=== PATIENT | male | born 1975 | race Caucasian/White ===

== ENCOUNTER 2019-02-25 08:46 | Inpatient (IN) ==
[2019-02-25] MEDS ORDERED: CeFAZolin Syr 2,000MG/20 ML 2,000 MG/20 ML SYRINGE IVPB ONE (09:39)
[2019-02-25] MEDS ORDERED: Ringers Solution, Lactated 1,000 ML IVC SCH (09:45)
--- NOTE | 2019-02-25 10:00 | History & Physical Report ---
Date of Encounter: 02/25/19 Time of Encounter: 10:00 24 Hour HP Update - Instructions Instructions: If the History and Physical is less than 30 days old and was completed prior to A.M. admission and or procedure and has NOT been updated on calendar day of procedure please complete this update prior to performing procedure. - Update Patient reports changes in Medical Condition: No Changes in examination, assessment, or condition: No Changes in Medication: No Preop tests/diagnostics Reviewed: Yes Surgery Remains Indicated: Yes Consent for Planned Operative Procedure(s) Verified: Yes - Pre-Operative Checklist Preoperative Checklist Indicated: No Prophylactic Antibiotic Ordered: Yes Is VTE Prophylaxis Indicated?: Yes
--- NOTE | 2019-02-25 10:01 | Discharge Summary ---
Outpatient Proc Discharge Plan - Plan Additional Instructions: Post Operative Shoulder Arthroscopy AFTER SURGERY General Expectations Swelling and discomfort in the shoulder for up to a week after surgery is typical A post-operative appointment will be set up with your provider within the 1st week of your surgery. Stitches will be removed within one (1) week of your surgery. You may need help with your daily activities, so it is a good idea to have family and friends prepared to help you. Eat a regular diet. Although some people feel much better right away, many people notice they are not back to normal for 4 weeks or more. The shoulder is stiff and sore for several weeks. Rest after your surgery. You may feel dizzy, lightheaded or sleepy for 12 to 24 hours after your operation. This is perfectly normal. Move slowly, and be especially careful on stairs. On the following day you can do those activities that you feel able to do. Wound Care Expect minimal bloody drainage on the surgical bandages. Keep bandages clean and dry. You may remove outer bandages after 24 hours. o Keep Steri-strips over the incisions. Keep them as dry as possible, and pat dry after showering. o If Steri-strips come off, cover incisions with band-aids and do not use antibiotic creams You may shower 24 hours after surgery. Do not scrub the incisions or submerge them under water for at least two weeks. Sling Use Duration of sling use will vary depending on the procedure and surgery typ e. o You may be in the sling for up to six (6) weeks. o Until you see your provider at the follow-up appointment, wear the sling at all times except when changing clothes, showering, Physical Therapy, or if advised by your Physician. o Feel free to adjust the sling at home to feel snug but not tight. You should be able to breathe freely. There will also be a strap over your shoulder you may adjust to keep your arm at a 90 degree angle. You do not want your hand hanging down towards the ground. This encourages swelling in the hand. o Your sling will be re-adjusted at your first post-operative appointment. Icing is most important in the first 72 hours after surgery Apply ice bags or use the Cryocuff device you will be given at the time of surgery. o Never apply ice directly contact to your skin. o You will be given a Cryocuff device at the time of surgery. Please be sure all the pieces are with you or in the package before leaving the hospital. Anesthesia - General and Regional General Anesthesia - It is not uncommon to have generalized aching and muscle soreness for 24 to 48 hours. A sore throat may also occur. Regional Interscalene Nerve Block - Your Anesthesiologist will discuss the utilization of this nerve block with you prior to surgery. This is performed to limit post-operative pain - you should experience little to no pain right after surgery. o Nerve blocks can last 12 to 48 hours after the surgery. o After the surgery, start to take your pain medication as prescribed, though not more than every four (4) hours, in anticipation of the nerve block wearing off. You may experience the inability to move your shoulder and hand, numbness, and swelling may feel different. If you experience severe or prolonged shortness of breath, please go to the emergency room. Pain Management After surgery: Do not wait until you are in a lot of pain before taking your prescribed pain medication. It takes 30-45 minutes for the medication to take effect. Pain tends to be worse at night, affecting sleep. o Lying down may increase discomfort. o Try sleeping in a recliner, or propped up with multiple pillows in bed - A pillow placed behind your elbow may help. Narcotic Medication Protocol o Strong oral narcotic pain medications are typically prescribed for the first few days after surgery. Use only as directed. o Common side effects include nausea, dizziness, urinary retention, and constipation. If any of these are occurring to an uncomfortable level, decrease the amount of pain medication you are taking or stop taking it entirely. A stool softener may be helpful for constipation while taking pain medications. This is an [id number] product, such as Colace or Miralax. o If you have an adverse reaction to the pain medication prescribed, please bring in your medicine bottle with you to your 1st appointment. Call our office at if you do not tolerate the medication well. o Take your pain medication with food. Do not combine with alcoholic beverages. o Do not operate machinery or a vehicle while taking pain medications. Other Medications o Do not take Tylenol (Acetaminophen) in combination with pain medications that include these same substances. You may find the contents of the pain medication on the bottle of your prescription. o You may take anti-inflammatory medication (Motrin [Ibuprofen], Aleve [Naproxen], Celebrex, Aspirin, etc) in conjunction with your pain medication if you can tolerate these medications. o After the surgery, you may resume your normal medications that you took prior to surgery. WHAT YOU CAN EXPECT IN THE 1ST MONTH Physical Therapy - this will be addressed at your first post-operative appointment. The type of procedure you have determines when you will start Physical Therapy and is managed on a [id number]-[id number] basis. Rotator cuff repairs, shoulder stabilizations, and clavicular procedures: Therapy starts approx. 6 weeks after surgery. Other procedures: Therapy starts immediately after surgery. You should call your insurance company and therapy location ahead of time to learn allotted number of visits, financial expenses, and out of pocket costs. We are happy to provide you with a list of [facility] locations. Driving - this will be addressed at your first post-operative appointment. 1. You must be completely off your pain medication. 2. You must be able to perform the necessary functions comfortably and confidently. This may take 1 month or longer. Working - this will be addressed at your first appointment - Restrictions are job related and can vary from 2-10 weeks. 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 An average recovery period typically lasts about three (3) to six (6) months. You should not participate in contact sports or do heavy lifting until released by your physician. *Any questions or concerns regarding your surgery, you may contact Esperanza Negrete PA-C* ([phone]. Option #3 *Please allow for 24-48 hours to receive a return phone call* If the case of an emergency, please call 911 or go to the closest Emergency Department
[2019-02-25] MEDS ORDERED: Famotidine 20 MG/2 ML VIAL IVP ONE (10:54)
[2019-02-25] MEDS ORDERED: Pregabalin 75 MG CAPSULE PO ONE (10:55)
[2019-02-25] MEDS ORDERED: Acetaminophen IV 1,000 MG/100 ML INFUS..BTL IVPB ONE (10:55)
[2019-02-25] MEDS ORDERED: *HR* Promethazine 25 MG/ML VIAL IVP PRN (10:56)
[2019-02-25] MEDS ORDERED: *HR* HYDROmorphone (PF) 1 MG/ML SYRINGE IVP PRN (10:56)
[2019-02-25] MEDS ORDERED: *HR* Labetalol 20 MG/4 ML SYRINGE IVP PRN (10:56)
[2019-02-25] MEDS ORDERED: *HR* HYDROmorphone 2 MG TABLET PO PRN (10:56)
[2019-02-25] MEDS ORDERED: *HR* OxyCODONE Immed Rel 5 MG TABLET PO PRN (10:56)
--- NOTE | 2019-02-25 11:06 | Anesthesia Evaluation PreOp ---
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 lasted , re- placed < 5 years), Other (Anxiety/Depression) Other Medical History: Denies Any Significant HX Anesthesia History: No Prior Anesthetic Complications, Past Anesthesia (R-Should er surgery), Problems (believes he had PNB and also states he had a Sz after surgery.) Alcohol Use: rarely Drug use: none Medications and Allergies ARIPiprazole [Abilify] 10 mg PO DAILY 02/25/19 [History] Buspar 15 mg PO BID 02/25/19 [History] Clindamycin [Cleocin] 150 mg PO Q6HR #7 capsule 02/25/19 [Rx] Folic Acid 1 mg PO DAILY 02/25/19 [History] Ibuprofen 800 mg PO TID PRN 02/25/19 [History] Ibuprofen [Motrin] 600 mg PO Q8HR #20 tab 02/25/19 [Rx] Multivit/Ca/Min/Fe/FA [Thera M Plus] 1 each PO DAILY 02/25/19 [History] OxyCODONE Immed Rel [Roxicodone 5 MG] 5 mg PO Q6HR PRN 5 Days #20 tablet 02/25/19 [Rx] Pantoprazole Sodium [Protonix] 40 mg PO DAILY 02/25/19 [History] Sertraline HCl 100 mg PO DAILY 02/25/19 [History] Topiramate [Topamax] 100 mg PO BID 02/25/19 [History] carBAMazepine [Tegretol] 200 mg PO BID 02/25/19 [History] clonazePAM [Clonazepam] 1 mg PO BID 02/25/19 [History] lamoTRIgine [Lamictal] 100 mg PO BID 02/25/19 [History] Allergy/AdvReac Type Severity Reaction Status Date / Time acetaminophen [From NyQuil] Allergy Rash Verified 02/25/19 09:39 dextromethorphan Allergy Rash Verified 02/25/19 09:39 [From NyQuil] doxylamine [From NyQuil] Allergy Rash Verified 02/25/19 09:39 phenytoin [From Dilantin] Allergy Rash Verified 02/20/19 15:24 pseudoephedrine [From NyQuil] Allergy Rash Verified 02/25/19 09:39 red dye Allergy Rash Verified 02/20/19 15:24 ivp dye AdvReac Rash Uncoded 02/25/19 09:39 - Meds/Allergy Pre-op Review Medications Reviewed: Yes Allergies Reviewed: Yes Beta Blockers on Current Med List: No Anesthesia Results - Labs Laboratory Tests 02/20/19 15:38 WBC 11.1 Hgb 14.9 Hct 44.8 Plt Count 334 Anesthesia Exam O2 Sat Height 1.83 m Weight 112.661 kg O2 Sat by Pulse Oximetry 98 Vital Signs Temp Pulse Resp BP Pulse Ox 98.0 F 85 20 116/87 98 02/25/19 09:41 02/25/19 09:41 02/25/19 09:41 02/25/19 09:41 02/25/19 09:41 Height: 6' Weight: 238# BMI = 34 NPO (# of Hours): Mnoc - HEENT Pupil (Motor): Pupils equal, EOMI Mallampati: III (Consider Glidescope for GETA) Teeth: Normal (fair dentition) Oral Opening: Greater than 3 - PRECISION CROP MANAGER LOC: Oriented [employer]CISION CROP MANAGER Motor: Normal RUE, Normal LUE, Normal RLE, Normal LLE, Normal Face [employer]CISION [employer]OP MANAGER Sensory: Normal: RUE, LUE, RLE, LLE, Face - Cardiac Rhythm: Regular Murmur: None - Pulmonary Breath Sounds: bilateral Clear Respiratory Effort: Symmetrical Anesthesia Assess/Plan ASA Score: 3 Level of consciousness: Cooperative, Oriented, Tranquil Anesthetic Plan: General Monitoring Plan: Standard Monitors Recovery Plan: PACU Anes Supervising Prov Stmt: Pt seen/evaluated, R&B Discussed, quesiotns answered and consent obtained. Angelo Chand MD
[2019-02-25] MEDS ORDERED: *HR* LORazepam 1 MG TABLET ONE (11:11)
[2019-02-25] MEDS ORDERED: *HR* FentaNYL (PF) 100 MCG/2 ML VIAL ONE (11:22)
[2019-02-25] MEDS ORDERED: *HR* Propofol 200 MG/20 ML VIAL IVP ONE (11:23)
[2019-02-25] MEDS ORDERED: *HR* Midazolam HCl 2 MG/2 ML VIAL ONE ×4 (11:23→13:51)
[2019-02-25] MEDS ORDERED: Lidocaine -MPF 2% 2 ML VIAL ONE (11:24)
[2019-02-25] MEDS ORDERED: Lidocaine -MPF 1% 5 ML AMPUL ONE (11:35)
[2019-02-25] MEDS ORDERED: MethylPREDNISolone Acet(DEPOT) 80 MG/ML VIAL ONE (11:40)
[2019-02-25] MEDS ORDERED: Bupivacaine/EPI 1:200k 0.5%PF 30 ML VIAL ONE (11:40)
[2019-02-25] MEDS ORDERED: *HR* Succinylcholine 200 MG/10 ML VIAL IVP ONE (12:05)
[2019-02-25] MEDS ORDERED: *HR* HYDROMORPHONE 2 MG/ML VIAL ONE (12:19)
[2019-02-25] MEDS ORDERED: Ondansetron 4 MG/2 ML VIAL ONE (12:26)
[2019-02-25] MEDS ORDERED: EPHEDrine 50 MG/ML VIAL ONE (12:26)
--- NOTE | 2019-02-25 12:40 | Orthopedic Operative Note ---
Date of procedure: 02/25/19 Pre-op diagnosis: Left acromioclavicular arthritis Post-op diagnosis: same Procedure: Procedure: Left shoulder subacromial decompression distal clavicle resection Estimated blood loss: 20 cc Hardware: Cartilage surfaces: Glenoid:wnl Humeral Head:wnl Rotator cuff: Subscapularis: Normal Supraspinatus: Normal Infraspinatus: Normal Exam Under anesthesia: Full motion no instability Operative Dication: The patient was brought to the operating room and placed on the operating room table. After general anesthesia was administered the operative shoulder was examined. The patient was then placed in the modified beachchair position and all pressure points were padded appropriately, and the head was stabilized in the neutral position. The operative extremity was prepped and draped in sterile surgical fashion. The patient received IV antibiotics prior skin incision. A standard posterior portal was established and the arthroscope was introduced into the shoulder without complication. A standard anterior portal was established through the rotator interval utilizing an outside in technique localizing with spinal needle. The outflow cannula was introduced without complication. Diagnostic arthroscopy was performed. The articular surface of the glenoid and the humeral head were evaluated no articular injury identified. The anterior labrum, the superior labrum and the biceps tendon were evaluated no pathology identified. Evaluation of the subscapularis to supraspinatus and infraspinatus performed no tears identified. The arthroscope was then removed from the shoulder and introduced into the subacromial space. The arthroscopic sheath was passed out the anterior portal and the anterior cannula was introduced into the subacromial space in a retrograde fashion. A standard lateral portal was established utilizing outside in technique. The ArthroCare ablator was introduced through the lateral portal, the CA ligament was released off the anterior undersurface of the acromiom, a preliminary acromioplasty was performed with the alfredo through the lateral portal. The arthroscope was then removed from the posterior portal and introduced through the lateral portal. The ArthroCare ablator was introduced through posterior portal and the bursectomy was completed. Evaluation of the rotator cuff was performed on the bursal side no tears identified.The scope was introduced through the posterior portal. The bur through the anterior portal. The distal clavicle resection was completed. Involving 5-8 mm of the distal clavicle. The arthroscope was removed from the shoulder and the shoulder was evacuated of fluid. The incisions were closed with interrupted 2-0 nylon suture. The shoulder was infiltrated with half percent Marcaine with epinephrine and 1 cc of depomedrol The patient was placed in a sterile dressing and neutral wedge. They were extubated transferred to recovery in stable condition. Anesthesia: SALVADORA Surgeon: Rodger Ruiz Was there an patient services assistant present: No Estimated blood loss (cc): 20 Condition: stable Disposition: PACU
[2019-02-25] MEDS ORDERED: *HR* Midazolam HCl 2 MG/2 ML VIAL IVP ONE (13:50)
[2019-02-25] MEDS ORDERED: *HR* Midazolam HCl 5 MG/ML VIAL ONE ×2 (14:20→15:09)
[2019-02-25] MEDS ORDERED: diazePAM 10 MG/2 ML SYRINGE IVP ONE (15:30)
[2019-02-25] MEDS ORDERED: *HR* LORazepam 2 MG/ML VIAL IVP PRN (16:29)
--- NOTE | 2019-02-25 16:47 | Neurology - Consult Note ---
<Jamarcus Mejía - Last Filed: 02/25/19 16:33> Date of Encounter: 02/25/19 Time of Encounter: 16:33 Assessment and Plan (1) Seizures Current Visit: Yes Status: Acute Neurology c/s by Ortho PA with concerns for seizures Patient is s/p shoulder surgery today and began having seizures in post op recovery Seizure episode x4 in total today with tonic-clonic activity; abated with Versed Mother at bedside; Patient is MRDD lives with Mom. Reports medication compliance Sees [facility] and has a VNS device The neuro exam today finds the patient in a postictal state however, the exam is non-focal otherwise STAT EEG- does not find any seizure activity but found beta activity which can be seen with BZD and barbiturate use During my assessment he did finally arouse and return to baseline state Recommending implementing seizure precautions Rec tele monitoring Rec neuro assessments per protocol Starting long acting BZD Ativan 2mg Q1H PRN for seizurs Patient's mother reporting allergies to generic seizure meds; In that case he will need to bring in his home seizure medication; okay to take home seizure medications We are not increasing dose of AED's or adding any medications Not recommending neuro imaging at this time Continue with medical and supportive care History of Present Illness Chief complaint: seizures HPI: Mr. Amaro is a 44 year old male with a PMH of seizures (has a VNS; follows with [facility] neurology), depression, anxiety, tremors. He is S/p left shoulder subacromial decompression and distal clavicle resection today. He is witnessed to have 2 episodes of tonic-clonic seizure activity located in the head and RUE while in post op recovery and again having full tonic-clonic activity x2 events in the ambulatory surgical recovery center. The seizure activity is ranging from 30-to-2 minutes and the time of my assessment he is postictal with confusion with lethargy. He is unable to provide HPI but information was obtained from his Mother and [id number] report. It was reported that he was given a total of 20mg IV Versed in post-op recovery and the ambulatory surgical recovery center before seizure abatement. He has not had any additional seizure activity since his last dose of Versed. Vitals were reviewed and with the exception of a mild tachycardia he is hemodynamically stable. Past Med Surg Social Fam HX - Past Medical History Medical history: GERD, kidney stones, seizures Additional medical history: mrdd Psychiatric history: anxiety, bipolar, depression, PTSD - Past Surgical History Additional surgical history: Shoulder replacement and vagal stimulator. tonsils - Social History Smoking Status: Former smoker Smokeless Tobacco Status: No (Quit) Alcohol use: rarely Drug use: none Medications and Allergies ARIPiprazole [Abilify] 10 mg PO DAILY 02/25/19 [History] Buspar 15 mg PO BID 02/25/19 [History] Clindamycin [Cleocin] 150 mg PO Q6HR #7 capsule 02/25/19 [Rx] Folic Acid 1 mg PO DAILY 02/25/19 [History] Ibuprofen 800 mg PO TID PRN 02/25/19 [History] Ibuprofen [Motrin] 600 mg PO Q8HR #20 tab 02/25/19 [Rx] Multivit/Ca/Min/Fe/FA [Thera M Plus] 1 each PO DAILY 02/25/19 [History] OxyCODONE Immed Rel [Roxicodone 5 MG] 5 mg PO Q6HR PRN 5 Days #20 tablet 02/25/19 [Rx] Pantoprazole Sodium [Protonix] 40 mg PO DAILY 02/25/19 [History] Sertraline HCl 100 mg PO DAILY 02/25/19 [History] Topiramate [Topamax] 100 mg PO BID 02/25/19 [History] carBAMazepine [Tegretol] 200 mg PO BID 02/25/19 [History] clonazePAM [Clonazepam] 1 mg PO BID 02/25/19 [History] lamoTRIgine [Lamictal] 100 mg PO BID 02/25/19 [History] Allergy/AdvReac Type Severity Reaction Status Date / Time acetaminophen [From NyQuil] Allergy Rash Verified 02/25/19 09:39 dextromethorphan Allergy Rash Verified 02/25/19 09:39 [From NyQuil] doxylamine [From NyQuil] Allergy Rash Verified 02/25/19 09:39 phenytoin [From Dilantin] Allergy Rash Verified 02/20/19 15:24 pseudoephedrine [From NyQuil] Allergy Rash Verified 02/25/19 09:39 red dye Allergy Rash Verified 02/20/19 15:24 ivp dye AdvReac Rash Uncoded 02/25/19 09:39 ROS unobtainable: due to mental status All Systems: The remainder of the systems were reviewed and are negative Physical Examination - Vital Signs Vital Signs: Initial Vital Signs Temp Pulse Resp BP Pulse Ox 98.0 F 85 20 116/87 98 02/25/19 09:41 02/25/19 09:41 02/25/19 09:41 02/25/19 09:41 02/25/19 09:41 - Exam Exam: Examination: General Examination: *CONSTITUTIONAL: lethargic and postictal but arousable to veral stimulus, no acute distress *GENERAL APPEARANCE OF PATIENT appears healthy and well groomed *EYES: pupils equal, round, reactive to light and accommodation, conjunctiva clear without masses or ulcerations, fundi normal. *CARDIOVASCULAR: no peripheral edema, distal temperature normal, dorsalis pedis pulses normal. 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 No abnormal movements, fasciculations or atrophy identified. Neurological: *ORIENTATION to person but lethargic. *LANGUAGE AND FUNCTION no significant aphasia or dysarthia was noted. *ATTENTION AND CONCENTRATION are abnormal and he requires refocusing *LANGUAGE FUNCTION no significant aphasia or dysarthia was noted. *FUND OF KNOWLEDGE aware of current events, past history, vocabulary *MENTAL attention span and concentration abnormal. *CN II optic fundi were normal, no papilledema noted. *CN III,IV, PERRLA extraocular eye movements were full, no nystagmus and no ptosis noted. *CN V shows normal sensation and jaw opens symmetrically. *CN VII shows normal facial movement symmetrically, upper and lower bilat erally. *CN VIII shows no significant hearing loss on exam *CN IX-Xpalate elevated symmetrically *CN XI normal strength in the sternocleidomastoid muscles, symmetrical shoulder shrugging. *CN XII tongue protruded in the midline, with normal strength and movement. *SENSORY EXAMINATION light touch intact *REFLEXES: deep tendon reflexes were normal and symmetrical , grade 2/4 diffusely, no pathological reflexes were noted. *CEREBELLAR TESTING normal finger to nose, heel/knee/coleman *PAIN LEVEL 0/10 Consult Discharge Plan - Plan Additional Instructions: Follow up with Dr Ruiz's office March 05, 10:15 am Post Operative Shoulder Arthroscopy AFTER SURGERY General Expectations Swelling and discomfort in the shoulder for up to a week after surgery is typical A post-operative appointment will be set up with your provider within the 1st week of your surgery. Stitches will be removed within one (1) week of your surgery. You may need help with your daily activities, so it is a good idea to have family and friends prepared to help you. Eat a regular diet. Although some people feel much better right away, many people notice they are not back to normal for 4 weeks or more. The shoulder is stiff and sore for several weeks. Rest after your surgery. You may feel dizzy, lightheaded or sleepy for 12 to 24 hours after your operation. This is perfectly normal. Move slowly, and be especially careful on stairs. On the following day you can do those activities that you feel able to do. Wound Care Expect minimal bloody drainage on the surgical bandages. Keep bandages clean and dry. You may remove outer bandages after 24 hours. o Keep Steri-strips over the incisions. Keep them as dry as possible, and pat dry after showering. o If Steri-strips come off, cover incisions with band-aids and do not use antibiotic creams You may shower 24 hours after surgery. Do not scrub the incisions or submerge them under water for at least two weeks. Sling Use Duration of sling use will vary depending on the procedure and surgery type. o You may be in the sling for up to six (6) weeks. o Until you see your provider at the follow-up appointment, wear the sling at all times except when changing clothes, showering, Physical Therapy, or if advised by your Physician. o Feel free to adjust the sling at home to feel snug but not tight. You should be able to breathe freely. There will also be a strap over your shoulder you may adjust to keep your arm at a 90 degree angle. You do not want your hand hanging down towards the ground. This encourages swelling in the hand. o Your sling will be re-adjusted at your first post-operative appointment. Icing is most important in the first 72 hours after surgery Apply ice bags or use the Cryocuff device you will be given at the time of surgery. o Never apply ice directly contact to your skin. o You will be given a Cryocuff device at the time of surgery. Please be sure all the pieces are with you or in the package before leaving the hospital. Anesthesia - General and Regional General Anesthesia - It is not uncommon to have generalized aching and muscle soreness for 24 to 48 hours. A sore throat may also occur. Regional Interscalene Nerve Block - Your Anesthesiologist will discuss the utilization of this nerve block with you prior to surgery. This is performed to limit post-operative pain - you should experience little to no pain right after surgery. o Nerve blocks can last 12 to 48 hours after the surgery. o After the surgery, start to take your pain medication as prescribed, though not more than every four (4) hours, in anticipation of the nerve block wearing off. You may experience the inability to move your shoulder and hand, numbness, and swelling may feel different. If you experience severe or prolonged shortness of breath, please go to the emergency room. Pain Management After surgery: Do not wait until you are in a lot of pain before taking your prescribed pain medication. It takes 30-45 minutes for the medication to take effect. Pain tends to be worse at night, affecting sleep. o Lying down may increase discomfort. o Try sleeping in a recliner, or propped up with multiple pillows in bed - A pillow placed behind your elbow may help. Narcotic Medication Protocol o Strong oral narcotic pain medications are typically prescribed for the first few days after surgery. Use only as directed. o Common side effects include nausea, dizziness, urinary retention, and constipation. If any of these are occurring to an uncomfortable level, decrease the amount of pain medication you are taking or stop taking it entirely. A stool softener may be helpful for constipation while taking pain medications. This is an [id number] product, such as Colace or Miralax. o If you have an adverse reaction to the pain medication prescribed, please bring in your medicine bottle with you to your 1st appointment. Call our office at if you do not tolerate the medication well. o Take your pain medication with food. Do not combine with alcoholic beverages. o Do not operate machinery or a vehicle while taking pain medications. Other Medications o Do not take Tylenol (Acetaminophen) in combination with pain medications that include these same substances. You may find the contents of the pain medication on the bottle of your prescription. o You may take anti-inflammatory medication (Motrin [Ibuprofen], Aleve [Naproxen], Celebrex, Aspirin, etc) in conjunction with your pain medication if you can tolerate these medications. o After the surgery, you may resume your normal medications that you took prior to surgery. WHAT YOU CAN EXPECT IN THE 1ST MONTH Physical Therapy - this will be addressed at your first post-operative appointment. The type of procedure you have determines when you will start Physical Therapy and is managed on a [id number] basis. Rotator cuff repairs, shoulder stabilizations, and clavicular procedures: Therapy starts approx. 6 weeks after surgery. Other procedures: Therapy starts immediately after surgery. You should call your insurance company and therapy location ahead of time to learn allotted number of visits, financial expenses, and out of pocket costs. We are happy to provide you with a list of [facility] locations. Driving - this will be addressed at your first post-operative appointment. 1. You must be completely off your pain medication. 2. You must be able to perform the necessary functions comfortably and confidently. This may take 1 month or longer. Working - this will be addressed at your first appointment - Restrictions are job related and can vary from 2-10 weeks. 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 An average recovery period typically lasts about three (3) to six (6) months. You should not participate in contact sports or do heavy lifting until released by your physician. *Any questions or concerns regarding your surgery, you may contact Esperanza Negrete PA-C* ([phone]. Option #3 *Please allow for 24-48 hours to receive a return phone call* If the case of an emergency, please call 911 or go to the closest Emergency Department Home Medication List * You have been given a list of your current medications. If you have changes in your medications, update your list. * Provide a list of current medications to your primary care physician. * Carry a copy of your current medications with you in case of an emergency. Referrals: Ru Riley, DO [Primary Care Provider] - <Rachana Langley I - Last Filed: 02/25/19 17:03> Date of Encounter: 02/25/19 Assessment and Plan (1) Seizures Current Visit: Yes Status: Acute I have personally performed a face to face diagnostic evaluation, including HPI, EXAM, which is included in the Assesment and plan, which was discussed with Jamarcus Mejía CNP, I agree with the above outlined documentation. Patient has multiple breakthrough seizures while in recovery now coming out of it is alert awake and oriented able to have a reasonable conversation, stat EEG did not show any seizures At this time suggest to continue on his current anticonvulsant medication Patient not able to take generic medication recommend his home medication, mother to bring his medication to the hospital while he is inpatient, no need for any imaging studies at this time if patient remained stable overnight he could be discharged to home in the morning with follow-up with neurology as a scheduled. Discussed in great detail with the patient mother who is present at the bedside Rachana Langley MD. NeurologyI History of Present Illness HPI: Mr. Amaro is a 44 year old male All Systems: The remainder of the systems were reviewed and are negative Physical Examination - Vital Signs Vital Signs: Initial Vital Signs Temp Pulse Resp BP Pulse Ox 98.0 F 85 20 116/87 98 02/25/19 09:41 02/25/19 09:41 02/25/19 09:41 02/25/19 09:41 02/25/19 09:41
--- NOTE | 2019-02-25 16:59 | EEG/EMG/Oth Biometrics Report ---
EEG Procedure Report Date of procedure: 02/25/19 (STAT) EEG Procedure: Routine EEG Procedure Note: This is a STAT 21 channel digital EEG performed utilizing 10- 20 international electrode placement system. FINDINGS: Patient has a predominant waking background frequency that is average voltage 8 to 10 Hertz alpha activity in the posterior region, normal amplitude symmetrical over the both hemispheres reactive to eyes opening and closing record continued to show alpha activity intermixed with some beta activity during this study likely related to medications side effects , no abnormal activity recorded, predominantly no evidence of any spike wave discharges or any lateralizing abnormalities, Photic stimulation did not produce any convulsive response. Intermittent EMG artifacts were noted. Stage II sleep was not achieved. Impression: Normal awake drowsy electroencephalogram. With the exception of be to activity which is a nonspecific pattern mostly related to benzodiazepine and barbiturates use No epileptiform discharges or any other paroxysmal activities noted. ( Please note that normal EEG does not exclude the diagnosis of seizures or epilepsy, clinical correlation is suggested)
[2019-02-25] MEDS ORDERED: diazePAM 10 MG/2 ML SYRINGE ONE (17:05)
--- NOTE | 2019-02-25 17:21 | Anesthesia Evaluation Post Op ---
Date of Encounter: 02/25/19 Time of Encounter: 17:00 - Vital Signs Vital Signs: Vital Signs Temp Pulse Resp BP Pulse Ox 02/25/19 15:48 122 16 126/87 100 02/25/19 15:30 114 16 118/86 100 02/25/19 15:15 103 16 110/94 100 02/25/19 15:00 97.8 F 105 16 107/80 100 02/25/19 14:46 105 16 107/80 100 02/25/19 14:30 102 14 123/87 100 02/25/19 14:15 97.8 F 113 20 87/44 100 02/25/19 14:01 97 16 116/59 100 02/25/19 13:51 101 18 115/57 100 02/25/19 13:41 96 12 123/86 100 02/25/19 13:31 96 18 121/83 100 02/25/19 13:21 98 12 112/88 95 02/25/19 13:11 93 10 108/82 94 02/25/19 13:01 93 10 114/75 94 02/25/19 12:51 97.5 F L 91 16 113/77 94 02/25/19 09:41 98.0 F 85 20 116/87 98 Intake and Output 02/25/19 02/25/19 02/25/19 07:59 15:59 23:59 Output Total Balance -20 / -20 Output: Estimated Blood Loss Other: Weight 112.661 kg Patient Weight 02/25/19 23:59 Weight 112.661 kg - Airway Airway: Non-obstructed - Cardiovascular Regular Rate, Baseline Rhythm - Mental Status Mental Status: Alert & Oriented, Answers Appropriately - Pain Pain Scale: 1 Pain Scale used: Dinh-Cosme (Faces) - Nausea Vomiting Nausea Vomiting: Not Present - Hydration Hydration: Tolerates oral liquids, Has not voided - Discharge PostOp Status: Transfer Patient to floor Anes Supervising Prov Stmt: Pt s/p Shoulder surgery at [facility] being admitted to Hospitalist service with Neurology consult already obtained. Pt exhibited seizure activity in PACU that initially responded to Midazolam. Once seizure activity abated, Pt brought to Phase 2 where he later demonstrated whole body seizure activity lasting approximately 1-1/2 minutes that also responded to Midazolam. Request for admission to [facility] by Hospitalist was submitted and ultimately obtained with Neurology team consulting. During this same time Pt had witnessed whole body seizure lasting > 4 minutes that ultimately responded to Midazolam and A request for Pharmacy to provide [facility] longer acting Benzodiazepine was made. Ultimately Pt received 14mg Midazolam + 2mg Diazepam in PACU/Phase 2 [facility]. By the time of Discharge from [facility] Pt was seen by Neurology team [Jamarcus Mejía, ASPEN and Dr. Kilpatrick] for a Neuro evaluation and onsite EEG prior to being transferred to [facility]. Pt verbally responsive and communicating meaningfully with [facility] at time of transfer. - MD Mannie
[2019-02-25 17:57] LABS: Carbamazepine (Tegretol) 8 mcg/mL (4-12)
[2019-02-25] MEDS ORDERED: Naloxone 0.4 MG/ML INJ IVP PRN (18:29)
--- NOTE | 2019-02-25 19:03 | Internal Med History&Physical ---
Date of Encounter: 02/25/19 Time of Encounter: 18:15 Internal Medicine - H&P: HPI Chief complaint: Seizures Admitted From: Direct Admit Plans for Post Hospital Care: Home History of present illness: Mr. Amaro is a 44 year old male with a past medical history significant for seasonal, depression, anxiety on multiple medications at home, unclear regarding the name of the medications, post today and operated for left shoulder subacromial decompression and distal clavicle resection when he had 2 witnessed episodes of tonic-clonic seizures of the right upper extremity and haed while he was in the postop recovery. Patient again had tonic-clonic activity, in the ambulatory surgical recovery center. Seizure activity remained from 30 seconds to 2 minutes. Patient was given 20 mg of IV Versed in the postop recovery be fore seizure abatement. Currently, patient is alert and oriented. Patient does not number the events of status. Patient had a long history of seizures, first episode when he was 10 years old and is on medications. Unclear about the medication. Patient mother will bring the medications from home today. Patient has already been evaluated by the neurology or recommending IV benzodiazepines when necessary for the seizures. Patient is currently feeling fine. Denies any pain. Denies any chest pain, shortness of breath, headache, dizziness. Patient feels that he is very tired. Patient also had an EEG done right after he had the episode of seizure. As per the report, patient had activity which is normally seen in benzodiazepine and barbiturate use. Past Med Surg Social Fam HX - Past Medical History Attestation: Yes The following information was validated with the patient. Medical history: GERD, kidney stones, seizures Additional medical history: mrdd Psychiatric history: anxiety, bipolar, depression, PTSD - Past Surgical History Additional surgical history: Shoulder replacement and vagal stimulator. tonsils - Social History Smoking Status: Former smoker Smokeless Tobacco Status: No (Quit) Alcohol use: rarely Drug use: none Internal Medicine - H&P: Meds ARIPiprazole [Abilify] 10 mg PO DAILY 02/25/19 [History] Buspar 15 mg PO BID 02/25/19 [History] Clindamycin [Cleocin] 150 mg PO Q6HR #7 capsule 02/25/19 [Rx] Folic Acid 1 mg PO DAILY 02/25/19 [History] Ibuprofen 800 mg PO TID PRN 02/25/19 [History] Ibuprofen [Motrin] 600 mg PO Q8HR #20 tab 02/25/19 [Rx] Multivit/Ca/Min/Fe/FA [Thera M Plus] 1 each PO DAILY 02/25/19 [History] OxyCODONE Immed Rel [Roxicodone 5 MG] 5 mg PO Q6HR PRN 5 Days #20 tablet 02/25/19 [Rx] Pantoprazole Sodium [Protonix] 40 mg PO DAILY 02/25/19 [History] Sertraline HCl 100 mg PO DAILY 02/25/19 [History] Topiramate [Topamax] 100 mg PO BID 02/25/19 [History] carBAMazepine [Tegretol] 200 mg PO BID 02/25/19 [History] clonazePAM [Clonazepam] 1 mg PO BID 02/25/19 [History] lamoTRIgine [Lamictal] 100 mg PO BID 02/25/19 [History] Allergy/AdvReac Type Severity Reaction Status Date / Time acetaminophen [From NyQuil] Allergy Rash Verified 02/25/19 09:39 dextromethorphan Allergy Rash Verified 02/25/19 09:39 [From NyQuil] doxylamine [From NyQuil] Allergy Rash Verified 02/25/19 09:39 phenytoin [From Dilantin] Allergy Rash Verified 02/20/19 15:24 pseudoephedrine [From NyQuil] Allergy Rash Verified 02/25/19 09:39 red dye Allergy Rash Verified 02/20/19 15:24 ivp dye AdvReac Rash Uncoded 02/25/19 09:39 All Systems PM: A 10-system review of systems was performed and is negative for pertinent findings except as documented above in the HPI. Review of systems: General: Negative for fever, chills, rigors. HEENT: Negative for swelling, discharge from nose, discharge from ears. EYES: Negative for any discharge from the eyes. Respiratory: Negative for shortness of breath, orthopnea, exertional dyspnea. Cardiovascular: Negative for chest pain, shortness of breath, orthopnea, PND. Gastrintestical: Negative for diarrhea, constipation, blood in stools. Genitourinary: Negative for dysuria, hematuria, nocturia, increased frequency of urine. Hematological: Negative for blood loss, negative for active cancer. Neurological: See HPI Endocrinology: Negative for constipation, polyuria, polydipsia. Psychiatric: Negative for anxiety or depression. - Constitutional Vitals: Temp Pulse Resp BP Pulse Ox 97.8 F 122 16 126/87 100 02/25/19 15:00 02/25/19 15:48 02/25/19 15:48 02/25/19 15:48 02/25/19 15:48 Exam: General: Alert and oriented, no physical distress, able to follow commands. HEENT: No thyromegaly, no lymphadenopathy, no discharge. Eyes: No discharge. Respiratory: Normal vesicular breathing, no added sounds, breathing equal in both sides. CVS: Normal heart sounds, no murmurs, no edema. Extremities: No peripheral edema, peripheral pulses intact. Lymph nodes: No lymphadenopathy Gastrointestinal: Soft, nontender abdomen, normal abdominal sounds. No distention noted. Genitourinary: No paravertebral tenderness. Neurological: Alert and oriented. No focal deficits. Cranial nerves II-XII intact. - Assessment and Plan (1) Seizures Current Visit: Yes Status: Acute Assessment and plan: Had multiple witnessed episodes of seizures. Stat EEG did not find any physical activity. Neurology on board. Patient is currently on long-acting benzodiazepines when necessary for the seizures. Patient has some allergies to the seizure the medications. Patient's mother is going to bring patient seizure medications. Patient will be started on the home medications once her mother brings the medications. Tylenol given to the night came to restart the patient on his home medications. As per neurology no neuroimaging required at this point. (2) Status post subacromial decompression Current Visit: Yes Status: Acute Assessment and plan: Got subacromial decompression and clavicle resection today on the left side. Patient currently denies any pain. On pain regimen. Ortho ON board (3) DVT prophylaxis Current Visit: Yes Status: Acute Assessment and plan: Patient is able to ambulate and as per nursing information patient today multiple times. Continue intermittent pneumatic decompression devices. (4) Constipation Current Visit: No Status: Chronic Assessment and plan: Continue patient on docusate for the history of constipation.. Qualifiers: Constipation type: unspecified constipation type Qualified Code(s): K59.00 - Constipation, unspecified (5) Depression Current Visit: No Status: Chronic Assessment and plan: Has a history of depression, on medication, no active depression at this point. Unclear regarding anti depression medications. Patient will be started on his home medication once the mother brings the patient medications. Qualifiers: Depression Type: unspecified Qualified Code(s): F32.9 - Major depressive disorder, single episode, unspecified - Time Spent With Patient Total time spent is greater than 50% in coordination of care (as documented) at patient's floor/unit and/or counseling patient:
[2019-02-25] MEDS ORDERED: *HR* LORazepam 2 MG/ML VIAL IVP ONE (21:00)
[2019-02-25] MEDS: carBAMazepine 200 MG TABLET PO SCH (22:26)
[2019-02-25] MEDS: lamoTRIgine 100 MG TABLET PO SCH (22:26)
[2019-02-25] MEDS: Topiramate 100 MG TABLET PO SCH (22:26)
[2019-02-25 22:33] LABS: Basophils # 0.1 K/mcL (0.0-0.2); Basophils % 0.5 %; Eosinophils # 0.3 K/mcL (0.0-0.6); Eosinophils % 1.9 %; Hematocrit 42.4 % (37.5-50.1); Hemoglobin 14.3 g/dL (12.9-16.9); Immature Granulocytes % 0.7 % (0-4); Lymphocytes # 1.5 K/mcL (0.6-4.6); Mean Corpuscular HGB Conc 33.7 g/dL (31.6-35.5); Mean Corpuscular Hemoglobin 32.4 pg (28.0-33.3); Mean Corpuscular Volume 95.9 fL (83.0-100.0); Monocytes # 0.9 K/mcL (0.0-1.3); Monocytes % 5.7 %; Neutrophils # 12.3 K/mcL (1.6-8.9); Platelet Count 332 K/mcL (140-400); Red Blood Count 4.42 M/mcL (4.19-5.50); Red Cell Distribution Width 13.3 % (11.5-14.5); Segmented Neutrophils % 81.2 %; White Blood Count 15.2 K/mcL (4.3-11.1)
[2019-02-25] MEDS: *HR* OxyCODONE/APAP 10/325 TABLET PO PRN (22:37)
[2019-02-25 22:41] LABS: Alanine Aminotransferase 23 Units/L (7-52); Albumin 3.9 g/dL (3.5-5.7); Albumin/Globulin Ratio 1.8 (1.1-2.2); Alkaline Phosphatase 83 Units/L (34-104); Aspartate Amino Transferase 18 Units/L (13-39); Bilirubin,Total 0.2 mg/dL (0.3-1.0); Blood Urea Nitrogen 13 mg/dL (6-20); Calcium 8.3 mg/dL (8.6-10.3); Carbon Dioxide 17 mEq/L (23-29); Chloride 110 mEq/L (98-107); Globulin 2.2 g/dL (2.4-3.5); Glucose 116 mg/dL (70-105); Osmolality,Calculated 287 (280-300); Sodium 138 mEq/L (136-145); Total Protein 6.1 g/dL (6.4-8.9)
[2019-02-25 22:48] LABS: BUN/Creatinine Ratio 12 (6-26); eGFR For African Americans > 60 (> 60); eGFR For Non-African Americans > 60 (> 60)
[2019-02-26 06:41] LABS: White Blood Count 13.1 K/mcL (4.3-11.1)
[2019-02-26 06:42] LABS: Basophils # 0.1 K/mcL (0.0-0.2); Basophils % 0.4 %; Eosinophils # 0.3 K/mcL (0.0-0.6); Eosinophils % 2.6 %; Hematocrit 40.5 % (37.5-50.1); Hemoglobin 13.8 g/dL (12.9-16.9); Immature Granulocytes % 0.3 % (0-4); Lymphocytes # 1.9 K/mcL (0.6-4.6); Lymphocytes % 14.7 %; Mean Corpuscular HGB Conc 34.1 g/dL (31.6-35.5); Mean Corpuscular Hemoglobin 32.1 pg (28.0-33.3); Mean Corpuscular Volume 94.2 fL (83.0-100.0); Mean Platelet Volume 8.6 fL (9.4-12.4); Monocytes # 1.1 K/mcL (0.0-1.3); Monocytes % 8.1 %; Neutrophils # 9.7 K/mcL (1.6-8.9); Platelet Count 307 K/mcL (140-400); Segmented Neutrophils % 73.9 %
[2019-02-26 06:46] LABS: BUN/Creatinine Ratio 14 (6-26); Blood Urea Nitrogen 13 mg/dL (6-20); Calcium 8.9 mg/dL (8.6-10.3); Carbon Dioxide 21 mEq/L (23-29); Chloride 108 mEq/L (98-107); Glucose 113 mg/dL (70-105); Magnesium 1.8 mg/dL (1.6-2.6); Osmolality,Calculated 287 (280-300); Potassium 3.8 mEq/L (3.5-5.1); Sodium 138 mEq/L (136-145); eGFR For African Americans > 60 (> 60); eGFR For Non-African Americans > 60 (> 60)
[2019-02-26] MEDS: *HR* HYDROcodone/Acet 5/325 mg TABLET PO PRN ×2 (09:16→20:21)
[2019-02-26] MEDS: Folic Acid 1 MG TABLET PO SCH (09:16)
[2019-02-26] MEDS: ARIPiprazole 10 MG TABLET PO SCH (09:16)
[2019-02-26] MEDS: clonazePAM 1 MG TABLET PO SCH ×2 (09:16→15:18)
[2019-02-26] MEDS: Topiramate 100 MG TABLET PO SCH ×2 (09:16→20:22)
[2019-02-26] MEDS: Multivit/Ca/Min/Fe/FA 1 TAB TABLET PO SCH (09:16)
[2019-02-26] MEDS: carBAMazepine 200 MG TABLET PO SCH ×3 (09:17→20:22)
[2019-02-26] MEDS: lamoTRIgine 100 MG TABLET PO SCH ×3 (09:17→20:22)
--- NOTE | 2019-02-26 14:45 | Neurology Progress Note ---
Date of Encounter: 02/26/19 Time of Encounter: 14:43 Assessment and Plan (1) Seizures Current Visit: Yes Status: Acute Patient also has to 3 seizures this morning tonic in nature was slightly postictal state now back to baseline Considering that he continued to have these breakthrough seizures despite taking his medication probably need loop at higher dose of his oral medication and if he had another seizure in that case we may have to start him on a different anticonvulsive medication like and Keppra Discussed with the primary team patient may need to continue to monitor for any further seizures will give extra dose of CBZ now, and check the level, continue on Home dose o lamictal, and Klonipin, 1 mg po bid PLEASE MAKE SURE PT TAKING HIS HOME MEDS SCHEDULED Subjective Interval history: Currently he is a stable but reported to have 3 tonic seizure this morning lasting less than a minute and then resolving spontaneously patient slightly tired but now alert awake and oriented is been taking his home medication for his -seizure Objective - Constitutional Vitals: Temp Pulse Resp BP Pulse Ox 97.8 F 98 18 128/84 98 02/26/19 10:45 02/26/19 10:45 02/26/19 10:45 02/26/19 10:45 02/26/19 10:45 - Neurological Exam Motor Examination: Present: grossly full strength in all extremities (Left shoulder recent surgery beside that he is alert awake and oriented, cranial nerves are all intact, 4/4 in all 4 extremities) Results - Laboratory Findings CBC and BMP: 02/26/19 06:17 02/26/19 06:16 Abnormal lab findings: Abnormal lab results WBC 13.1 K/mcL (4.3-11.1) H 02/26/19 06:17 MPV 8.6 fL (9.4-12.4) L 02/26/19 06:17 9.7 K/mcL (1.6-8.9) H 02/26/19 06:17 Chloride 108 mEq/L (98-107) H 02/26/19 06:16 Carbon Dioxide 21 mEq/L (23-29) L 02/26/19 06:16 Glucose 113 mg/dL (70-105) H 02/26/19 06:16 Calcium 8.3 mg/dL (8.6-10.3) L 02/25/19 16:58 0.2 mg/dL (0.3-1.0) L 02/25/19 16:58 6.1 g/dL (6.4-8.9) L 02/25/19 16:58 2.2 g/dL (2.4-3.5) L 02/25/19 16:58 Consult Discharge Plan - Plan Additional Instructions: Follow up with Dr Ruiz's office March 05, 10:15 am Post Operative Shoulder Arthroscopy AFTER SURGERY General Expectations Swelling and discomfort in the shoulder for up to a week after surgery is typical A post-operative appointment will be set up with your provider within the 1st week of your surgery. Stitches will be removed within one (1) week of your surgery. You may need help with your daily activities, so it is a good idea to have family and friends prepared to help you. Eat a regular diet. Although some people feel much better right away, many people notice they are not back to normal for 4 weeks or more. The shoulder is stiff and sore for several weeks. Rest after your surgery. You may feel dizzy, lightheaded or sleepy for 12 to 24 hours after your operation. This is perfectly normal. Move slowly, and be especially careful on stairs. On the following day you can do those activities that you feel able to do. Wound Care Expect minimal bloody drainage on the surgical bandages. Keep bandages clean and dry. You may remove outer bandages after 24 hours. o Keep Steri-strips over the incisions. Keep them as dry as possible, and pat dry after showering. o If Steri-strips come off, cover incisions with band-aids and do not use antibiotic creams You may shower 24 hours after surgery. Do not scrub the incisions or submerge them under water for at least two weeks. Sling Use Duration of sling use will vary depending on the procedure and surgery type. o You may be in the sling for up to six (6) weeks. o Until you see your provider at the follow-up appointment, wear the sling at all times except when changing clothes, showering, Physical Therapy, or if advised by your Physician. o Feel free to adjust the sling at home to feel snug but not tight. You should be able to breathe freely. There will also be a strap over your shoulder you may adjust to keep your arm at a 90 degree angle. You do not want your hand hanging down towards the ground. This encourages swelling in the hand. o Your sling will be re-adjusted at your first post-operative appointment. Icing is most important in the first 72 hours after surgery Apply ice bags or use the Cryocuff device you will be given at the time of surgery. o Never apply ice directly contact to your skin. o You will be given a Cryocuff device at the time of surgery. Please be sure all the pieces are with you or in the package before leaving the hospital. Anesthesia - General and Regional General Anesthesia - It is not uncommon to have generalized aching and muscle soreness for 24 to 48 hours. A sore throat may also occur. Regional Interscalene Nerve Block - Your Anesthesiologist will discuss the utilization of this nerve block with you prior to surgery. This is performed to limit post-operative pain - you should experience little to no pain right after surgery. o Nerve blocks can last 12 to 48 hours after the surgery. o After the surgery, start to take your pain medication as prescribed, though not more than every four (4) hours, in anticipation of the nerve block wearing off. You may experience the inability to move your shoulder and hand, numbness, and swelling may feel different. If you experience severe or prolonged shortness of breath, please go to the emergency room. Pain Management After surgery: Do not wait until you are in a lot of pain before taking your prescribed pain medication. It takes 30-45 minutes for the medication to take effect. Pain tends to be worse at night, affecting sleep. o Lying down may increase discomfort. o Try sleeping in a recliner, or propped up with multiple pillows in bed - A pillow placed behind your elbow may help. Narcotic Medication Protocol o Strong oral narcotic pain medications are typically prescribed for the first few days after surgery. Use only as directed. o Common side effects include nausea, dizziness, urinary retention, and constipation. If any of these are occurring to an uncomfortable level, decrease the amount of pain medication you are taking or stop taking it entirely. A stool softener may be helpful for constipation while taking pain medications. This is an [id number] product, such as Colace or Miralax. o If you have an adverse reaction to the pain medication prescribed, please bring in your medicine bottle with you to your 1st appointment. Call our office at if you do not tolerate the medication well. o Take your pain medication with food. Do not combine with alcoholic beverages. o Do not operate machinery or a vehicle while taking pain medications. Other Medications o Do not take Tylenol (Acetaminophen) in combination with pain medications that include these same substances. You may find the contents of the pain medi cation on the bottle of your prescription. o You may take anti-inflammatory medication (Motrin [Ibuprofen], Aleve [Naproxen], Celebrex, Aspirin, etc) in conjunction with your pain medication if you can tolerate these medications. o After the surgery, you may resume your normal medications that you took prior to surgery. WHAT YOU CAN EXPECT IN THE 1ST MONTH Physical Therapy - this will be addressed at your first post-operative appointment. The type of procedure you have determines when you will start Physical Therapy and is managed on a [id number] basis. Rotator cuff repairs, shoulder stabilizations, and clavicular procedures: Therapy starts approx. 6 weeks after surgery. Other procedures: Therapy starts immediately after surgery. You should call your insurance company and therapy location ahead of time to learn allotted number of visits, financial expenses, and out of pocket costs. We are happy to provide you with a list of [place] locations. Driving - this will be addressed at your first post-operative appointment. 1. You must be completely off your pain medication. 2. You must be able to perform the necessary functions comfortably and confidently. This may take 1 month or longer. Working - this will be addressed at your first appointment - Restrictions are job related and can vary from 2-10 weeks. 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 An average recovery period typically lasts about three (3) to six (6) months. You should not participate in contact sports or do heavy lifting until released by your physician. *Any questions or concerns regarding your surgery, you may contact Esperanza Negrete PA-C* ([phone]. Option #3 *Please allow for 24-48 hours to receive a return phone call* If the case of an emergency, please call 911 or go to the closest Emergency Department Home Medication List * You have been given a list of your current medications. If you have changes in your medications, update your list. * Provide a list of current medications to your primary care physician. * Carry a copy of your current medications with you in case of an emergency. Referrals: Ru Riley, [Primary Care Provider] -
[2019-02-26] MEDS: *HR* OxyCODONE/APAP 10/325 TABLET PO PRN (15:18)
--- NOTE | 2019-02-26 16:28 | Internal Med Progress Note ---
Hospitalist Progress Note - Encounter Date of Encounter: 02/26/19 Time of Encounter: 11:25 - Subjective Interval History: Patient seen at bedside. Had 3 episodes of breakthrough seizures today in the morning. Currently, patient is looking normal. Denies any chest pain, shortness of breath, dizziness, blurry vision, headaches. - Exam Vitals: Temp Pulse Resp BP Pulse Ox 98.3 F 93 16 121/85 93 02/26/19 16:14 02/26/19 16:14 02/26/19 16:14 02/26/19 16:14 02/26/19 16:14 Exam: General: Alert, no physical distress, able to follow commands. HEENT: No thyromegaly, no lymphadenopathy, no discharge. Eyes: No discharge. Respiratory: Normal vesicular breathing, no added sounds, breathing equal in both sides. CVS: Normal heart sounds, no murmurs, no edema. Extremities: No peripheral edema, peripheral pulses intact. Lymph nodes: No lymphadenopathy Gastrointestinal: Soft, nontender abdomen, normal abdominal sounds. No distention noted. Genitourinary: No paravertebral tenderness. Neurological: Alert No focal deficits. Cranial nerves II-XII intact. - Assessment and Plan (1) Breakthrough seizure Current Visit: Yes Status: Acute Assessment and Plan: Patient had multiple episodes of breakthrough seizures after the surgery. Had 3 episodes of breakthrugh seizures.. Patient was taking his own home medications but still continues to have seizures. Stat EEG done yesterday did not find any activity concernig active seziure. Tegretol levels 8. Neurology is on board. For now, no plan for the imaging. Lamictal and topiramate levels have been ordered by the neurology. As per neurology, and the patient continues to have the seizures, his home medication might have to be increased in dose or maybe switch to a different medication. For now we will continue to monitor the patient on the current medication regimen. Continue on when necessary benzodiazepines. (2) Status post subacromial decompression Current Visit: Yes Status: Acute Assessment and Plan: Got subacromial decompression and clavicle resection today on the left side. Patient currently denies any pain. On pain regimen. Ortho ON board (3) DVT prophylaxis Current Visit: Yes Status: Acute Assessment and Plan: Patient is able to ambulate and as per nursing information patient today multiple times. Continue intermittent pneumatic decompression devices. (4) Constipation Current Visit: No Status: Chronic Assessment and Plan: Continue patient on docusate for the history of constipation.. (5) Depression Current Visit: No Status: Chronic Assessment and Plan: Has a history of depression, Continue the patient on sertraline. (6) GERD (gastroesophageal reflux disease) Current Visit: No Status: Chronic Assessment and Plan: -Continue omeprazole - Time Spent with Patient Total time spent is greater than 50% in coordination of care (as documented) at patient's floor/unit and/or counseling patient: Internal Medicine: Result - Labs CBC & Chem 7: 02/26/19 06:17 02/26/19 06:16 Labs: Short CBC 02/25/19 02/26/19 Range/Units 16:08 06:17 WBC 15.2 H 13.1 H (4.3-11.1) K/mcL Hgb 14.3 13.8 (12.9-16.9) g/dL Hct 42.4 40.5 (37.5-50.1) % Plt Count 332 307 (140-400) K/mcL Neutrophils # 12.3 H 9.7 H (1.6-8.9) K/mcL BMP 02/25/19 02/26/19 16:58 06:16 Sodium 138 138 Potassium 4.0 3.8 Chloride 110 H 108 H Carbon Dioxide 17 L 21 L BUN 13 13 Creatinine 1.13 0.93 Glucose 116 H 113 H Calcium 8.3 L 8.9 Liver Function 02/25/19 Range/Units 16:58 Total Bilirubin 0.2 L (0.3-1.0) mg/dL AST 18 (13-39) Units/L ALT 23 (7-52) Units/L Alkaline Phosphatase 83 (34-104) Units/L Albumin 3.9 (3.5-5.7) g/dL Consult Discharge Plan - Plan Additional Instructions: Follow up with Dr Ruiz's office March 05, 10:15 am Post Operative Shoulder Arthroscopy AFTER SURGERY General Expectations Swelling and discomfort in the shoulder for up to a week after surgery is typical A post-operative appointment will be set up with your provider within the 1st week of your surgery. Stitches will be removed within one (1) week of your surgery. You may need help with your daily activities, so it is a good idea to have family and friends prepared to help you. Eat a regular diet. Although some people feel much better right away, many people notice they are not back to normal for 4 weeks or more. The shoulder is stiff and sore for several weeks. Rest after your surgery. You may feel dizzy, lightheaded or sleepy for 12 to 24 hours after your operation. This is perfectly normal. Move slowly, and be especially careful on stairs. On the following day you can do those activities that you feel able to do. Wound Care Expect minimal bloody drainage on the surgical bandages. Keep bandages clean and dry. You may remove outer bandages after 24 hours. o Keep Steri-strips over the incisions. Keep them as dry as possible, and pat dry after showering. o If Steri-strips come off, cover incisions with band-aids and do not use antibiotic creams You may shower 24 hours after surgery. Do not scrub the incisions or sub merge them under water for at least two weeks. Sling Use Duration of sling use will vary depending on the procedure and surgery type. o You may be in the sling for up to six (6) weeks. o Until you see your provider at the follow-up appointment, wear the sling at all times except when changing clothes, showering, Physical Therapy, or if advised by your Physician. o Feel free to adjust the sling at home to feel snug but not tight. You should be able to breathe freely. There will also be a strap over your shoulder you may adjust to keep your arm at a 90 degree angle. You do not want your hand hanging down towards the ground. This encourages swelling in the hand. o Your sling will be re-adjusted at your first post-operative appointment. Icing is most important in the first 72 hours after surgery Apply ice bags or use the Cryocuff device you will be given at the time of surgery. o Never apply ice directly contact to your skin. o You will be given a Cryocuff device at the time of surgery. Please be sure all the pieces are with you or in the package before leaving the hospital. Anesthesia - General and Regional General Anesthesia - It is not uncommon to have generalized aching and muscle soreness for 24 to 48 hours. A sore throat may also occur. Regional Interscalene Nerve Block - Your Anesthesiologist will discuss the utilization of this nerve block with you prior to surgery. This is performed to limit post-operative pain - you should experience little to no pain right after surgery. o Nerve blocks can last 12 to 48 hours after the surgery. o After the surgery, start to take your pain medication as prescribed, though not more than every four (4) hours, in anticipation of the nerve block wearing off. You may experience the inability to move your shoulder and hand, numbness, and swelling may feel different. If you experience severe or prolonged shortness of breath, please go to the emergency room. Pain Management After surgery: Do not wait until you are in a lot of pain before taking your prescribed pain medication. It takes 30-45 minutes for the medication to take effect. Pain tends to be worse at night, affecting sleep. o Lying down may increase discomfort. o Try sleeping in a recliner, or propped up with multiple pillows in bed - A pillow placed behind your elbow may help. Narcotic Medication Protocol o Strong oral narcotic pain medications are typically prescribed for the first few days after surgery. Use only as directed. o Common side effects include nausea, dizziness, urinary retention, and constipation. If any of these are occurring to an uncomfortable level, decrease the amount of pain medication you are taking or stop taking it entirely. A stool softener may be helpful for constipation while taking pain med ications. This is an vzxq-kmo-vlalxtq product, such as Colace or Miralax. o If you have an adverse reaction to the pain medication prescribed, please bring in your medicine bottle with you to your 1st appointment. Call our office at if you do not tolerate the medication well. o Take your pain medication with food. Do not combine with alcoholic beverages. o Do not operate machinery or a vehicle while taking pain medications. Other Medications o Do not take Tylenol (Acetaminophen) in combination with pain medications that include these same substances. You may find the contents of the pain medication on the bottle of your prescription. o You may take anti-inflammatory medication (Motrin [Ibuprofen], Aleve [Naproxen], Celebrex, Aspirin, etc) in conjunction with your pain medication if you can tolerate these medications. o After the surgery, you may resume your normal medications that you took prior to surgery. WHAT YOU CAN EXPECT IN THE 1ST MONTH Physical Therapy - this will be addressed at your first post-operative appointment. The type of procedure you have determines when you will start Physical Therapy and is managed on a [id number] basis. Rotator cuff repairs, shoulder stabilizations, and clavicular procedures: Therapy starts approx. 6 weeks after surgery. Other procedures: Therapy starts immediately after surgery. You should call your insurance company and therapy location ahead of time to learn allotted number of visits, financial expenses, and out of pocket costs. We are happy to provide you with a list of [facility] locations. Driving - this will be addressed at your first post-operative appointment. 1. You must be completely off your pain medication. 2. You must be able to perform the necessary functions comfortably and confidently. This may take 1 month or longer. Working - this will be addressed at your first appointment - Restrictions are job related and can vary from 2-10 weeks. 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 An average recovery period typically lasts about three (3) to six (6) months. You should not participate in contact sports or do heavy lifting until released by your physician. *Any questions or concerns regarding your surgery, you may contact Esperanza Negrete PA-C* ([phone]. Option #3 *Please allow for 24-48 hours to receive a return phone call* If the case of an emergency, please call 911 or go to the closest Emergency Department Home Medication List * You have been given a list of your current medications. If you have changes in your medications, update your list. * Provide a list of current medications to your primary care physician. * Carry a copy of your current medications with you in case of an emergency. Referrals: Ru Riley, DO [Primary Care Provider] - (4) Constipation Qualifiers: Constipation type: unspecified constipation type Qualified Code(s): K59.00 - Constipation, unspecified (5) Depression Qualifiers: Depression Type: unspecified Qualified Code(s): F32.9 - Major depressive disorder, single episode, unspecified
[2019-02-27] MEDS ORDERED: Melatonin 3 MG TABLET PO PRN
[2019-02-27 05:58] LABS: Basophils % 0.4 %; Eosinophils # 0.6 K/mcL (0.0-0.6); Eosinophils % 5.3 %; Hemoglobin 13.4 g/dL (12.9-16.9); Immature Granulocytes % 0.5 % (0-4); Lymphocytes # 2.5 K/mcL (0.6-4.6); Lymphocytes % 23.7 %; Mean Corpuscular HGB Conc 33.5 g/dL (31.6-35.5); Mean Corpuscular Hemoglobin 32.3 pg (28.0-33.3); Mean Corpuscular Volume 96.4 fL (83.0-100.0); Mean Platelet Volume 8.8 fL (9.4-12.4); Monocytes # 0.8 K/mcL (0.0-1.3); Monocytes % 7.7 %; Neutrophils # 6.5 K/mcL (1.6-8.9); Platelet Count 260 K/mcL (140-400); Red Blood Count 4.15 M/mcL (4.19-5.50); Red Cell Distribution Width 13.1 % (11.5-14.5); Segmented Neutrophils % 62.4 %; White Blood Count 10.4 K/mcL (4.3-11.1)
[2019-02-27 06:19] LABS: Blood Urea Nitrogen 15 mg/dL (6-20); Calcium 8.5 mg/dL (8.6-10.3); Carbon Dioxide 21 mEq/L (23-29); Chloride 109 mEq/L (98-107); Glucose 115 mg/dL (70-105); Osmolality,Calculated 290 (280-300); Potassium 3.7 mEq/L (3.5-5.1); Sodium 139 mEq/L (136-145)
--- NOTE | 2019-02-27 06:34 | Orthopedics Progress Note ---
Date of Encounter: 02/27/19 Time of Encounter: 06:33 Subjective Interval history: Patient was seen this morning doing well without complaints. Afebrile vital signs stable. Operative extremity: Neurovascularly intact Dressing clean dry and intact [place] nontender Assessment and plan: Continue with postoperative care Orthopedically stable for discharge Objective Vital signs: Vital Signs Temp Pulse Resp BP Pulse Ox 02/27/19 04:05 98.4 F 87 19 131/85 95 02/26/19 22:48 97.4 F L 90 18 143/95 95 02/26/19 18:45 98.3 F 64 17 174/84 98 02/26/19 16:14 98.3 F 93 16 121/85 93 02/26/19 10:45 97.8 F 98 18 128/84 98 02/26/19 06:57 98.3 F 93 16 110/77 94 Intake and Output 02/26/19 02/26/19 02/27/19 15:59 23:59 07:59 Intake Total 240 / 240 Output Total 800 / 1925 300 / 300 Balance -560 / -1685 -300 / -300 Intake: Oral 240 / 240 Output: Urine 800 / 1925 300 / 300 - Labs CBC & BMP: 02/27/19 05:43 02/27/19 05:43 Labs: Abnormal lab results WBC 13.1 K/mcL (4.3-11.1) H 02/26/19 06:17 RBC 4.15 M/mcL (4.19-5.50) L 02/27/19 05:43 MPV 8.8 fL (9.4-12.4) L 02/27/19 05:43 9.7 K/mcL (1.6-8.9) H 02/26/19 06:17 Chloride 109 mEq/L (98-107) H 02/27/19 05:43 Carbon Dioxide 21 mEq/L (23-29) L 02/27/19 05:43 Glucose 115 mg/dL (70-105) H 02/27/19 05:43 Calcium 8.5 mg/dL (8.6-10.3) L 02/27/19 05:43 0.2 mg/dL (0.3-1.0) L 02/25/19 16:58 6.1 g/dL (6.4-8.9) L 02/25/19 16:58 2.2 g/dL (2.4-3.5) L 02/25/19 16:58 Consult Discharge Plan - Plan Additional Instructions: Follow up with Dr Ruiz's office March 05, 10:15 am Post Operative Shoulder Arthroscopy AFTER SURGERY General Expectations Swelling and discomfort in the shoulder for up to a week after surgery is typical A post-operative appointment will be set up with your provider within the 1st week of your surgery. Stitches will be removed within one (1) week of your surgery. You may need help with your daily activities, so it is a good idea to have family and friends prepared to help you. Eat a regular diet. Although some people feel much better right away, many people notice they are not back to normal for 4 weeks or more. The shoulder is stiff and sore for several weeks. Rest after your surgery. You may feel dizzy, lightheaded or sleepy for 12 to 24 hours after your operation. This is perfectly normal. Move slowly, and be especially careful on stairs. On the following day you can do those activities that you feel able to do. Wound Care Expect minimal bloody drainage on the surgical bandages. Keep bandages clean and dry. You may remove outer bandages after 24 hours. o Keep Steri-strips over the incisions. Keep them as dry as possible, and pat dry after showering. o If Steri-strips come off, cover incisions with band-aids and do not use antibiotic creams You may shower 24 hours after surgery. Do not scrub the incisions or submerge them under water for at least two weeks. Sling Use Duration of sling use will vary depending on the procedure and surgery type. o You may be in the sling for up to six (6) weeks. o Until you see your provider at the follow-up appointment, wear the sling at all times except when changing clothes, showering, Physical Therapy, or if advised by your Physician. o Feel free to adjust the sling at home to feel snug but not tight. You should be able to breathe freely. There will also be a strap over your shoulder you may adjust to keep your arm at a 90 degree angle. You do not want your hand hanging down towards the ground. This encourages swelling in the hand. o Your sling will be re-adjusted at your first post-operative appointment. Icing is most important in the first 72 hours after surgery Apply ice bags or use the Cryocuff device you will be given at the time of surgery. o Never apply ice directly contact to your skin. o You will be given a Cryocuff device at the time of surgery. Please be sure all the pieces are with you or in the package before leaving the hospital. Anesthesia - General and Regional General Anesthesia - It is not uncommon to have generalized aching and muscle soreness for 24 to 48 hours. A sore throat may also occur. Regional Interscalene Nerve Block - Your Anesthesiologist will discuss the utilization of this nerve block with you prior to surgery. This is performed to limit post-operative pain - you should experience little to no pain right after surgery. o Nerve blocks can last 12 to 48 hours after the surgery. o After the surgery, start to take your pain medication as prescribed, though not more than every four (4) hours, in anticipation of the nerve block wearing off. You may experience the inability to move your shoulder and hand, numbness, and swelling may feel different. If you experience severe or prolonged shortness of breath, please go to the emergency room. Pain Management After surgery: Do not wait until you are in a lot of pain before taking your prescribed pain medication. It takes 30-45 minutes for the medication to take effect. Pain tends to be worse at night, affecting sleep. o Lying down may increase discomfort. o Try sleeping in a recliner, or propped up with multiple pillows in bed - A pillow placed behind your elbow may help. Narcotic Medication Protocol o Strong oral narcotic pain medications are typically prescribed for the first few days after surgery. Use only as directed. o Common side effects include nausea, dizziness, urinary retention, and constipation. If any of these are occurring to an uncomfortable level, decrease the amount of pain medication you are taking or stop taking it entirely. A stool softener may be helpful for constipation while taking pain medications. This is an egeq-dtu-hxcxsco product, such as Colace or Miralax. o If you have an adverse reaction to the pain medication prescribed, please bring in your medicine bottle with you to your 1st appointment. Call our office at if you do not tolerate the medication well. o Take your pain medication with food. Do not combine with alcoholic beverages. o Do not operate machinery or a vehicle while taking pain medications. Other Medications o Do not take Tylenol (Acetaminophen) in combination with pain medications that include these same substances. You may find the contents of the pain medication on the bottle of your prescription. o You may take anti-inflammatory medication (Motrin [Ibuprofen], Aleve [Naproxen], Celebrex, Aspirin, etc) in conjunction with your pain medication if you can tolerate these medications. o After the surgery, you may resume your normal medications that you took prior to surgery. WHAT YOU CAN EXPECT IN THE 1ST MONTH Physical Therapy - this will be addressed at your first post-operative appointment. The type of procedure you have determines when you will start Physical Therapy and is managed on a xvod-rb-sotw basis. Rotator cuff repairs, shoulder stabilizations, and clavicular procedures: Therapy starts approx. 6 weeks after surgery. Other procedures: Therapy starts immediately after surgery. You should call your insurance company and therapy location ahead of time to learn allotted number of visits, financial expenses, and out of pocket costs. We are happy to provide you with a list of [facility] locations. Driving - this will be addressed at your first post-operative appointment. 1. You must be completely off your pain medication. 2. You must be able to perform the necessary functions comfortably and c onfidently. This may take 1 month or longer. Working - this will be addressed at your first appointment - Restrictions are job related and can vary from 2-10 weeks. 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 An average recovery period typically lasts about three (3) to six (6) months. You should not participate in contact sports or do heavy lifting until released by your physician. *Any questions or concerns regarding your surgery, you may contact Esperanza Negrete PA-C* ([phone]. Option #3 *Please allow for 24-48 hours to receive a return phone call* If the case of an emergency, please call 911 or go to the closest Emergency Department Home Medication List * You have been given a list of your current medications. If you have changes in your medications, update your list. * Provide a list of current medications to your primary care physician. * Carry a copy of your current medications with you in case of an emergency. Referrals: Ru Riley, [Primary Care Provider] -
[2019-02-27 06:44] LABS: BUN/Creatinine Ratio 15 (6-26); eGFR For African Americans > 60 (> 60); eGFR For Non-African Americans > 60 (> 60)
--- NOTE | 2019-02-27 09:11 | Neurology Progress Note ---
Date of Encounter: 02/27/19 Time of Encounter: 08:10 Assessment and Plan (1) Seizures Current Visit: Yes Status: Acute Patient seems to be doing okay no further seizures at this time it is okay to discharge him at home continue on his home dosage of antiseizure medication. Patient also has a VNS a stimulator for his seizures. [facility] suggest to continue follow-up with them as is scheduled Okay to discharge from neurology standpoint Subjective Interval history: Patient is a stable did not have any further seizures back to his baseline complaining of not resting well at night while he was in the hospital but no other new symptoms Objective - Constitutional Vitals: Temp Pulse Resp BP Pulse Ox 97.7 F 86 16 107/72 98 02/27/19 06:37 02/27/19 06:37 02/27/19 06:37 02/27/19 06:37 02/27/19 06:37 - Neurological Exam Motor Examination: Present: grossly full strength in all extremities (Left shoulder recent surgery beside that he is alert awake and oriented, cranial nerves are all intact, 4/4 in all 4 extremities) Results - Laboratory Findings CBC and BMP: 02/27/19 05:43 02/27/19 05:43 Abnormal lab findings: Abnormal lab results WBC 13.1 K/mcL (4.3-11.1) H 02/26/19 06:17 RBC 4.15 M/mcL (4.19-5.50) L 02/27/19 05:43 MPV 8.8 fL (9.4-12.4) L 02/27/19 05:43 9.7 K/mcL (1.6-8.9) H 02/26/19 06:17 Chloride 109 mEq/L (98-107) H 02/27/19 05:43 Carbon Dioxide 21 mEq/L (23-29) L 02/27/19 05:43 Glucose 115 mg/dL (70-105) H 02/27/19 05:43 Calcium 8.5 mg/dL (8.6-10.3) L 02/27/19 05:43 0.2 mg/dL (0.3-1.0) L 02/25/19 16:58 6.1 g/dL (6.4-8.9) L 02/25/19 16:58 2.2 g/dL (2.4-3.5) L 02/25/19 16:58 Consult Discharge Plan - Plan Additional Instructions: Follow up with Dr Ruiz's office March 05, 10:15 am Post Operative Shoulder Arthroscopy AFTER SURGERY General Expectations Swelling and discomfort in the shoulder for up to a week after surgery is typical A post-operative appointment will be set up with your provider within the 1st week of your surgery. Stitches will be removed within one (1) week of your surgery. You may need help with your daily activities, so it is a good idea to have family and friends prepared to help you. Eat a regular diet. Although some people feel much better right away, many people notice they are not back to normal for 4 weeks or more. The shoulder is stiff and sore for several weeks. Rest after your surgery. You may feel dizzy, lightheaded or sleepy for 12 to 24 hours after your operation. This is perfectly normal. Move slowly, and be especially careful on stairs. On the following day you can do those activities that you feel able to do. Wound Care Expect minimal bloody drainage on the surgical bandages. Keep bandages clean and dry. You may remove outer bandages after 24 hours. o Keep Steri-strips over the incisions. Keep them as dry as possible, and pat dry after showering. o If Steri-strips come off, cover incisions with band-aids and do not use antibiotic creams You may shower 24 hours after surgery. Do not scrub the incisions or submerge them under water for at least two weeks. Sling Use Duration of sling use will vary depending on the procedure and surgery type. o You may be in the sling for up to six (6) weeks. o Until you see your provider at the follow-up appointment, wear the sling at all times except when changing clothes, showering, Physical Therapy, or if advised by your Physician. o Feel free to adjust the sling at home to feel snug but not tight. You should be able to breathe freely. There will also be a strap over your shoulder you may adjust to keep your arm at a 90 degree angle. You do not want your hand hanging down towards the ground. This encourages swelling in the hand. o Your sling will be re-adjusted at your first post-operative appointment. Icing is most important in the first 72 hours after surgery Apply ice bags or use the Cryocuff device you will be given at the time of surgery. o Never apply ice directly contact to your skin. o You will be given a Cryocuff device at the time of surgery. Please be sure all the pieces are with you or in the package before leaving the hospital. Anesthesia - General and Regional General Anesthesia - It is not uncommon to have generalized aching and muscle soreness for 24 to 48 hours. A sore throat may also occur. Regional Interscalene Nerve Block - Your Anesthesiologist will discuss the utilization of this nerve block with you prior to surgery. This is performed to limit post-operative pain - you should experience little to no pain right after surgery. o Nerve blocks can last 12 to 48 hours after the surgery. o After the surgery, start to take your pain medication as prescribed, though not more than every four (4) hours, in anticipation of the nerve block wearing off. You may experience the inability to move your shoulder and hand, numbness, and swelling may feel different. If you experience severe or prolonged shortness of breath, please go to the emergency room. Pain Management After surgery: Do not wait until you are in a lot of pain before taking your prescribed pain medication. It takes 30-45 minutes for the medication to take effect. Pain tends to be worse at night, affecting sleep. o Lying down may increase discomfort. o Try sleeping in a recliner, or propped up with multiple pillows in bed - A pillow placed behind your elbow may help. Narcotic Medication Protocol o Strong oral narcotic pain medications are typically prescribed for the first few days after surgery. Use only as directed. o Common side effects include nausea, dizziness, urinary retention, and constipation. If any of these are occurring to an uncomfortable level, decrease the amount of pain medication you are taking or stop taking it entirely. A stool softener may be helpful for constipation while taking pain medications. This is an [id number] product, such as Colace or Miralax. o If you have an adverse reaction to the pain medication prescribed, please bring in your medicine bottle with you to your 1st appointment. Call our office at if you do not tolerate the medication well. o Take your pain medication with food. Do not combine with alcoholic beverages. o Do not operate machinery or a vehicle while taking pain medications. Other Medications o Do not take Tylenol (Acetaminophen) in combination with pain medications that include these same substances. You may find the contents of the pain medication on the bottle of your prescription. o You may take anti-inflammatory medication (Motrin [Ibuprofen], Aleve [Napr oxen], Celebrex, Aspirin, etc) in conjunction with your pain medication if you can tolerate these medications. o After the surgery, you may resume your normal medications that you took prior to surgery. WHAT YOU CAN EXPECT IN THE 1ST MONTH Physical Therapy - this will be addressed at your first post-operative appointment. The type of procedure you have determines when you will start Physical Therapy and is managed on a [id number]-[id number] basis. Rotator cuff repairs, shoulder stabilizations, and clavicular procedures: Therapy starts approx. 6 weeks after surgery. Other procedures: Therapy starts immediately after surgery. You should call your insurance company and therapy location ahead of time to learn allotted number of visits, financial expenses, and out of pocket costs. We are happy to provide you with a list of [place] locations. Driving - this will be addressed at your first post-operative appointment. 1. You must be completely off your pain medication. 2. You must be able to perform the necessary functions comfortably and confidently. This may take 1 month or longer. Working - this will be addressed at your first appointment - Restrictions are job related and can vary from 2-10 weeks. 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 An average recovery period typically lasts about three (3) to six (6) months. You should not participate in contact sports or do heavy lifting until released by your physician. *Any questions or concerns regarding your surgery, you may contact Esperanza Negrete PA-C* ([phone]. Option #3 *Please allow for 24-48 hours to receive a return phone call* If the case of an emergency, please call 911 or go to the closest Emergency Department Home Medication List * You have been given a list of your current medications. If you have changes in your medications, update your list. * Provide a list of current medications to your primary care physician. * Carry a copy of your current medications with you in case of an emergency. Referrals: Ru Riley, [Primary Care Provider] -
[2019-02-27] MEDS: carBAMazepine 200 MG TABLET PO SCH ×2 (10:39→14:49)
[2019-02-27] MEDS: lamoTRIgine 100 MG TABLET PO SCH ×2 (10:39→14:39)
[2019-02-27] MEDS: Folic Acid 1 MG TABLET PO SCH (10:39)
[2019-02-27] MEDS: Multivit/Ca/Min/Fe/FA 1 TAB TABLET PO SCH (10:39)
[2019-02-27] MEDS: clonazePAM 1 MG TABLET PO SCH (10:39)
[2019-02-27] MEDS: ARIPiprazole 10 MG TABLET PO SCH (10:39)
[2019-02-27] MEDS: Topiramate 100 MG TABLET PO SCH (10:39)
[2019-02-27 11:38] VITALS: BP 113/78
--- NOTE | 2019-02-27 11:39 | Discharge Summary ---
- NOTES TO OUTPATIENT PROVIDER Notes to Outpatient Provider: Came for the orthopedic surgery, had seizures, started back on his normal meds and did good. No seizures for last 24 H. No medication changes made. Orders not resulted at time of discharge: Pending orders 02/25/19 10:55 US anesthesia pain block [US] Routine 02/25/19 16:58 Lamictal Routine Topiramate Routine Date of Encounter: 02/27/19 Time of Encounter: 09:45 - Discharge Diagnosis (1) Breakthrough seizure Priority: Primary Status: Acute (2) Status post subacromial decompression Priority: Secondary Status: Acute (3) DVT prophylaxis Priority: Secondary Status: Acute (4) Constipation Priority: Secondary Status: Chronic Qualifiers: Constipation type: unspecified constipation type Qualified Code(s): K59.00 - Constipation, unspecified (5) Depression Priority: Secondary Status: Chronic Qualifiers: Depression Type: unspecified Qualified Code(s): F32.9 - Major depressive disorder, single episode, unspecified (6) GERD (gastroesophageal reflux disease) Priority: Secondary Status: Chronic Qualifiers: Qualified Code(s): K21.9 - Gastro-esophageal reflux disease without esophagitis Hospital course: Mr. Amaro is a 44 year old male with a past medical history significant for seizures who basically came to the hospital for same-day orthopedic surgery for subacromial decompression and clinical resection, while the patient was in the OT, patient had 6 episodes of seizures. EEG did not reveal any seizure activity. Patient was admitted for further management. He was started back on his home antiseizure medications. Next morning, patient had 3 more episodes of seizures. Home medications were continued. Today, patient was assessed again. Patient did not have any seizure activity for last 24 hours. Patient is feeling fine except for being tired because he was not able to sleep well last night. Patient is being discharged in stable condition. Neurology and orthopedics on board and is okay with the discharge. Discharge discussed with: patient - Time Spent with Patient Total time spent providing and/or coordinating discharge services: 35 mins - Discharge Medications Prescriptions: New Clindamycin [Cleocin] 150 mg PO Q6HR #7 capsule Ibuprofen [Motrin] 600 mg PO Q8HR #20 tab OxyCODONE Immed Rel [Roxicodone 5 MG] 5 mg PO Q6HR PRN 5 Days #20 tablet PRN Reason: Pain Continued lamoTRIgine [Lamictal] 200 mg PO TID@899,1429,2029 Pantoprazole Sodium [Protonix] 40 mg PO QAM Sertraline [Zoloft] 200 mg PO QAM carBAMazepine [Tegretol] 400 mg PO BID@899,2029 Topiramate [Topamax] 100 mg PO BID@899,2029 Buspirone HCl [Buspar] 15 mg PO TID@899, ARIPiprazole [Abilify] 10 mg PO QAM Folic Acid 1 mg PO QAM clonazePAM [Clonazepam] 1 mg PO BID@899,1629 carBAMazepine [Tegretol] 200 mg PO DAILY@1429 Multivit, Iron,Other Min [Thera-M] 1 tab PO DAILY Home Medications: ARIPiprazole [Abilify] 10 mg PO QAM 02/25/19 [History] Buspirone HCl [Buspar] 15 mg PO TID@0900,1429,202902/25/19 [History] Clindamycin [Cleocin] 150 mg PO Q6HR #7 capsule 02/25/19 [Rx] Folic Acid 1 mg PO QAM 02/25/19 [History] Ibuprofen [Motrin] 600 mg PO Q8HR #20 tab 02/25/19 [Rx] OxyCODONE Immed Rel [Roxicodone 5 MG] 5 mg PO Q6HR PRN 5 Days #20 tablet 02/25/19 [Rx] Pantoprazole Sodium [Protonix] 40 mg PO QAM 02/25/19 [History] Sertraline [Zoloft] 200 mg PO QAM 02/25/19 [History] Topiramate [Topamax] 100 mg PO BID@899,202902/25/19 [History] carBAMazepine [Tegretol] 200 mg PO DAILY@1430 02/25/19 [History] carBAMazepine [Tegretol] 400 mg PO BID@899,202902/25/19 [History] clonazePAM [Clonazepam] 1 mg PO BID@0900,1630 02/25/19 [History] lamoTRIgine [Lamictal] 200 mg PO TID@0900,1429,202902/25/19 [History] Multivit,Th Iron,Other Min [Thera-M] 1 tab PO DAILY 02/26/19 [History] Allergies/Adverse Reactions: Allergy/AdvReac Type Severity Reaction Status Date / Time acetaminophen [From NyQuil] Allergy Rash Verified 02/25/19 09:39 dextromethorphan Allergy Rash Verified 02/25/19 09:39 [From NyQuil] doxylamine [From NyQuil] Allergy Rash Verified 02/25/19 09:39 phenytoin [From Dilantin] Allergy Rash Verified 02/20/19 15:24 pseudoephedrine [From NyQuil] Allergy Rash Verified 02/25/19 09:39 red dye Allergy Rash Verified 02/20/19 15:24 ivp dye AdvReac Rash Uncoded 02/25/19 09:39 Date of admission: 02/25/19 18:46 Primary care physician: Ru Riley Consults: 02/25/19 16:47 Consult to Interpret Exam [CONS] Stat Consulting Provider: Rachana Langley I Consult to Interpret Exam: Interpret EEG - Constitutional Vitals: Temp Pulse Resp BP Pulse Ox 97.7 F 86 16 107/72 98 02/27/19 06:37 02/27/19 06:37 02/27/19 06:37 02/27/19 06:37 02/27/19 06:37 Exam: General: Alert, no physical distress, able to follow commands. HEENT: No thyromegaly, no lymphadenopathy, no discharge. Eyes: No discharge. Respiratory: Normal vesicular breathing, no added sounds, breathing equal in both sides. CVS: Normal heart sounds, no murmurs, no edema. Extremities: No peripheral edema, peripheral pulses intact. Lymph nodes: No lymphadenopathy Gastrointestinal: Soft, nontender abdomen, normal abdominal sounds. No distention noted. Genitourinary: No paravertebral tenderness. Neurological: Alert No focal deficits. Cranial nerves II-XII intact. - Patient Status Disposition: Home, Self-Care Condition: Fair Functional capacity at discharge: independent ambulation Overall status at discharge: patient is back to baseline - Discharge Instructions Follow Up With: Ru Riley DO [Primary Care Provider] - Additional Instructions: Follow up with Dr Ruiz's office March 05, 10:15 am Post Operative Shoulder Arthroscopy AFTER SURGERY General Expectations Swelling and discomfort in the shoulder for up to a week after surgery is typical A post-operative appointment will be set up with your provider within the 1st week of your surgery. Stitches will be removed within one (1) week of your surgery. You may need help with your daily activities, so it is a good idea to have family and friends prepared to help you. Eat a regular diet. Although some people feel much better right away, many people notice they are not back to normal for 4 weeks or more. The shoulder is stiff and sore for several weeks. Rest after your surgery. You may feel dizzy, lightheaded or sleepy for 12 to 24 hours after your operation. This is perfectly normal. Move slowly, and be especially careful on stairs. On the following day you can do those activities that you feel able to do. Wound Care Expect minimal bloody drainage on the surgical bandages. Keep bandages clean and dry. You may remove outer bandages after 24 hours. o Keep Steri-strips over the incisions. Keep them as dry as possible, and pat dry after showering. o If Steri-strips come off, cover incisions with band-aids and do not use antibiotic creams You may shower 24 hours after surgery. Do not scrub the incisions or submerge them under water for at least two weeks. Sling Use Duration of sling use will vary depending on the procedure and surgery type. o You may be in the sling for up to six (6) weeks. o Until you see your provider at the follow-up appointment, wear the sling at all times except when changing clothes, showering, Physical Therapy, or if advised by your Physician. o Feel free to adjust the sling at home to feel snug but not tight. You should be able to breathe freely. There will also be a strap over your shoulder you may adjust to keep your arm at a 90 degree angle. You do not want your hand hanging down towards the ground. This encourages swelling in the hand. o Your sling will be re-adjusted at your first post-operative appointment. Icing is most important in the first 72 hours after surgery Apply ice bags or use the Cryocuff device you will be given at the time of surgery. o Never apply ice directly contact to your skin. o You will be given a Cryocuff device at the time of surgery. Please be sure all the pieces are with you or in the package before leaving the hospital. Anesthesia - General and Regional General Anesthesia - It is not uncommon to have generalized aching and muscle soreness for 24 to 48 hours. A sore throat may also occur. Regional Interscalene Nerve Block - Your Anesthesiologist will discuss the utilization of this nerve block with you prior to surgery. This is performed to limit post-operative pain - you should experience little to no pain right after surgery. o Nerve blocks can last 12 to 48 hours after the surgery. o After the surgery, start to take your pain medication as prescribed, though not more than every four (4) hours, in anticipation of the nerve block wearing off. You may experience the inability to move your shoulder and hand, numbness, and swelling may feel different. If you experience severe or prolonged shortness of breath, please go to the emergency room. Pain Management After surgery: Do not wait until you are in a lot of pain before taking your prescribed pain medication. It takes 30-45 minutes for the medication to take effect. Pain tends to be worse at night, affecting sleep. o Lying down may increase discomfort. o Try sleeping in a recliner, or propped up with multiple pillows in bed - A pillow placed behind your elbow may help. Narcotic Medication Protocol o Strong oral narcotic pain medications are typically prescribed for the first few days after surgery. Use only as directed. o Common side effects include nausea, dizziness, urinary retention, and constipation. If any of these are occurring to an uncomfortable level, decrease the amount of pain medication you are taking or stop taking it entirely. A stool softener may be helpful for constipation while taking pain medications. This is an kofo-gwe-fbxqfbh product, such as Colace or Miralax. o If you have an adverse reaction to the pain medication prescribed, please b ring in your medicine bottle with you to your 1st appointment. Call our office at if you do not tolerate the medication well. o Take your pain medication with food. Do not combine with alcoholic beverages. o Do not operate machinery or a vehicle while taking pain medications. Other Medications o Do not take Tylenol (Acetaminophen) in combination with pain medications that include these same substances. You may find the contents of the pain medication on the bottle of your prescription. o You may take anti-inflammatory medication (Motrin [Ibuprofen], Aleve [Naproxen], Celebrex, Aspirin, etc) in conjunction with your pain medication if you can tolerate these medications. o After the surgery, you may resume your normal medications that you took prior to surgery. WHAT YOU CAN EXPECT IN THE 1ST MONTH Physical Therapy - this will be addressed at your first post-operative appointment. The type of procedure you have determines when you will start Physical Therapy and is managed on a vdeh-sm-jdge basis. Rotator cuff repairs, shoulder stabilizations, and clavicular procedures: Therapy starts approx. 6 weeks after surgery. Other procedures: Therapy starts immediately after surgery. You should call your insurance company and therapy location ahead of time to learn allotted number of visits, financial expenses, and out of pocket costs. We are happy to provide you with a list of [place] locations. Driving - this will be addressed at your first post-operative appointment. 1. You must be completely off your pain medication. 2. You must be able to perform the necessary functions comfortably and confidently. This may take 1 month or longer. Working - this will be addressed at your first appointment - Restrictions are job related and can vary from 2-10 weeks. 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 An average recovery period typically lasts about three (3) to six (6) months. You should not participate in contact sports or do heavy lifting until released by your physician. *Any questions or concerns regarding your surgery, you may contact Esperanza Negrete PA-C* ([phone]. Option #3 *Please allow for 24-48 hours to receive a return phone call* If the case of an emergency, please call 911 or go to the closest Emergency Department Home Medication List * You have been given a list of your current medications. If you have changes in your medications, update your list. * Provide a list of current medications to your primary care physician. * Carry a copy of your current medications with you in case of an emergency. - Diet and Activity Activity: as per physical therapy, increase activity as tolerated Diet: advance to your usual diet
[2019-02-27] MEDS: *HR* OxyCODONE/APAP 10/325 TABLET PO PRN (11:56)
[2019-02-28 08:32] LABS: Lamictal 5.6 ug/mL (2.5-15.0)
[2019-02-28 08:33] LABS: Topiramate 2.1 ug/mL (5.0-20.0)
== END 2019-02-27 15:38 | disposition home or self-care (01) | DRG 511 ==
LOC: SAMDAYPAV 08:46 → 3NENU 08:46 → UNDODISOB 17:15 → SUATTDRO 18:46
PROVIDERS: ADMIT Internal Medicine; ATTEND Internal Medicine